=== PATIENT | female | born 1940 ===

== ENCOUNTER 2023-05-19 16:12 | Emergency (ER) | payer OTHER ==
[~2023-05-19] VITALS: Ht 149.9 cm; Wt 58.0 kg
[2023-05-19 16:44] VITALS: BP 151/81; PULSE 87; RESP 16; TEMP 98; O2SAT 95
== END 2023-05-20 03:10 | disposition left against medical advice (07) ==
LOC: ER 16:14
DX: R10.9 Unspecified abdominal pain (principal); Z53.21 Procedure and treatment not carried out due to patient leaving prior to being seen by health care provider
CPT/HCPCS: 99281